=== PATIENT | female | born 1930 | race Caucasian/White ===

== ENCOUNTER → 2020-11-30 | Outpatient (CLI) | payer MEDICARE, BC ==
[~2020-11-30] MED LIST: AMLO5TAB4 PO; APIX2.5T PO; CHOL10003 PO; LISI-167 PO; ROPI0.254 PO; [UNRECOGNIZED DRUG - OTHER]; [UNRECOGNIZED DRUG - OTHER] PO; calcium PO
[2020-11-30 12:21] LABS: BASOPHILS % (AUTO) 0 % (0-1); EOSINOPHILS % (AUTO) 1 % (1-7); LYMPHOCYTES % (AUTO) 23 % (22-44); MEAN CORPUSCULAR HEMOGLOBIN 31.7 pg (27.0-34.8); MEAN CORPUSCULAR HGB CONC 33.5 g/dL (32.4-35.8); MEAN PLATELET VOLUME 10.1 fL (7.4-10.4); MONOCYTES % (AUTO) 14 % (2-9); NEUTROPHILS % (AUTO) 62 % (42-75); PLATELET COUNT 193 x10^3/uL (130-400); RED BLOOD COUNT 4.49 x10^6/uL (3.82-5.3); RED CELL DISTRIBUTION WIDTH 13.5 % (9.6-15.2)
[2020-11-30 12:30] LABS: ALANINE AMINOTRANSFERASE 21 U/L (12-78); ALBUMIN 3.7 g/dL (3.4-5.0); ANION GAP 7 mmol/L (5-15); CALCIUM 9.7 mg/dL (8.5-10.1); CHLORIDE 109 mmol/L (98-107); CREATININE 1.51 mg/dL (0.55-1.02)
[2020-11-30 12:32] LABS: ALKALINE PHOSPHATASE 66 U/L (45-117); BILIRUBIN,TOTAL 0.3 mg/dL (0.2-1.0); TOTAL PROTEIN 7.1 g/dL (6.4-8.2)
== END | disposition home or self-care (01) ==
LOC: STAR 10:04
PROVIDERS: ATTEND Orthopaedic Surgery
DX: Z01.810 Encounter for preprocedural cardiovascular examination (principal); Z01.818 Encounter for other preprocedural examination; M17.12 Unilateral primary osteoarthritis, left knee; M25.562 Pain in left knee; I49.3 Ventricular premature depolarization; I51.7 Cardiomegaly; Z20.822 Contact with and (suspected) exposure to COVID-19
CPT/HCPCS: 36415; 80053; 85025; 87081; 93005; U0003; U0005

== ENCOUNTER 2020-12-06 05:39 | Inpatient (IN) | payer MEDICARE, BC ==
[~2020-12-06] VITALS: Ht 165.1 cm; Wt 59.0 kg
[2020-12-06 06:05] VITALS: BP 161/69
[2020-12-06] MEDS ORDERED: CHLORHEXIDINE 15 ML UDC ONE (06:10)
[2020-12-06] MEDS ORDERED: KETOROLAC 30 MG/1 ML ONE (06:21)
[2020-12-06] MEDS ORDERED: TRANEXAMIC ACID 100 MG/ML, 10ML ONE (06:21)
[2020-12-06] MEDS ORDERED: SODIUM CHLORIDE 0.9% 50 ML ONE (06:21)
[2020-12-06] MEDS ORDERED: VANCOMYCIN 1,000 MG ONE (06:21)
[2020-12-06] MEDS ORDERED: ROPIvacaine/PF 0.2%, 20 ML ONE (06:21)
[2020-12-06] MEDS ORDERED: EPINEPHRINE 1 MG/ML, 1ML ONE (06:21)
[2020-12-06] MEDS ORDERED: LACTATED RINGERS 1,000 ML IV SCH (06:30)
[2020-12-06] MEDS ORDERED: CHLORHEXIDINE 15 ML UDC PO ONE (06:30)
[2020-12-06] MEDS ORDERED: CEFAZOLIN 1,000 MG ONE (06:49)
[2020-12-06] MEDS ORDERED: ROCURONIUM 10 MG/ML,10ML ONE (06:49)
[2020-12-06] MEDS ORDERED: ONDANSETRON 2MG/ML, 2ML ONE (06:49)
[2020-12-06] MEDS ORDERED: SUCCINYLCHOLINE 20 MG/ML, 10ML ONE (06:49)
[2020-12-06] MEDS ORDERED: FENTANYL PF 250 MCG/5ML ONE ×2 (07:23)
[2020-12-06] MEDS ORDERED: FENTANYL PF 100 MCG/2ML ONE (08:20)
[2020-12-06] MEDS: FENTANYL PF 100 MCG/2ML IV PRN ×2 (08:23→08:42)
[2020-12-06] MEDS ORDERED: EPHEDRINE 50 MG/ML, 1ML IVPush PRN (08:30)
[2020-12-06] MEDS ORDERED: LABETALOL 5MG/ML, 20ML IV PRN (08:30)
[2020-12-06] MEDS ORDERED: OXYcodone 5 MG/5 ML ORAL.SOL UDC PO PRN (08:30)
[2020-12-06] MEDS ORDERED: HALOPERIDOL 5 MG/ML IV PRN (08:30)
[2020-12-06] MEDS ORDERED: MORPHINE SULFATE 4 MG/ML, 1ML IVPush PRN (08:30)
[2020-12-06] MEDS ORDERED: HYDROmorphone 1 MG/ML, 1ML INJ IVPush PRN (08:30)
[2020-12-06] MEDS ORDERED: PROMETHAZINE 25 MG/ML, 1ML IVPush PRN (08:30)
[2020-12-06] MEDS ORDERED: KETOROLAC 30 MG/1 ML IV SCH (08:30)
[2020-12-06] MEDS ORDERED: HYDROcodone/APAP 5/325 TABLET PO PRN (08:30)
[2020-12-06] MEDS ORDERED: ACETAMINOPHEN 325 MG TABLET PO PRN (08:30)
[2020-12-06] MEDS ORDERED: PROMETHAZINE 25 MG/ML, 1ML IM PRN (08:30)
[2020-12-06] MEDS ORDERED: PROMETHAZINE 12.5 MG SUPP PR PRN (08:30)
[2020-12-06] MEDS ORDERED: METHOCARBAMOL 1,000 MG in DEXTROSE 5% 100 ML IV PRN (08:30)
[2020-12-06] MEDS ORDERED: DIAZEPAM 5 MG TABLET PO PRN (08:30)
[2020-12-06] MEDS ORDERED: hydrALAzine 20 MG/ML, 1ML IV PRN (08:30)
[2020-12-06] MEDS ORDERED: ONDANSETRON 2MG/ML, 2ML IV PRN (08:30)
[2020-12-06] MEDS ORDERED: DIPHENHYDRAMINE 50 MG/ML, 1ML IVPush PRN (08:30)
[2020-12-06] MEDS ORDERED: TRANEXAMIC ACID 1,000 MG in SODIUM CHLORIDE 0.9% 100 ML IVPB ONE (08:30)
[2020-12-06] MEDS ORDERED: ONDANSETRON 4 MG TABLET PO PRN (08:30)
[2020-12-06] MEDS ORDERED: LORazepam 2 MG/ML, 1ML IVPush PRN (08:30)
[2020-12-06] MEDS ORDERED: OXYcodone 5 MG/5 ML ORAL.SOL UDC ONE (08:44)
[2020-12-06] MEDS ORDERED: ACETAMINOPHEN 650 MG/20.3 ML UDC ONE (08:44)
[2020-12-06] MEDS: OXYcodone 5 MG/5 ML ORAL.SOL UDC PO PRN ×2 (08:47→23:14)
[2020-12-06] MEDS: AMLODIPINE 5 MG TABLET PO SCH ×2 (09:00→23:14)
[2020-12-06] MEDS ORDERED: [UNRECOGNIZED DRUG - OTHER] PO SCH (09:00)
[2020-12-06] MEDS: APIXABAN 2.5 MG TABLET PO SCH ×2 (09:00→23:14)
[2020-12-06] MEDS: LISINOPRIL 10 MG TABLET PO SCH ×2 (09:00→23:14)
[2020-12-06] MEDS: DOCUSATE 100 MG CAPSULE PO SCH ×2 (10:00→23:14)
[2020-12-06] MEDS: ROPINIROLE 0.25MG TABLET PO SCH ×2 (10:00→23:15)
[2020-12-06] MEDS ORDERED: HYDROmorphone 1 MG/ML, 1ML INJ ONE ×2 (10:51)
[2020-12-06] MEDS ORDERED: PROPOFOL 50 ML ONE (10:54)
[2020-12-06 14:51] VITALS: BP 105/47
[2020-12-06] MEDS: CEFAZOLIN PMX 1GM/50ML 50 ML IVPB SCH ×2 (15:05→23:13)
[2020-12-06 19:20] VITALS: BP 108/61
[2020-12-07 00:24] VITALS: BP 131/58
[2020-12-07] MEDS ORDERED: [UNRECOGNIZED DRUG - OTHER] MC SCH (00:30)
[2020-12-07 04:41] VITALS: BP 134/63
[2020-12-07] MEDS ORDERED: DEXAMETHASONE 4 MG/ML, 1ML IVPush ONE (06:00)
[2020-12-07 07:26] VITALS: BP 120/52
[2020-12-07] MEDS: APIXABAN 2.5 MG TABLET PO SCH ×2 (08:35→21:42)
[2020-12-07] MEDS: LISINOPRIL 10 MG TABLET PO SCH ×2 (08:35→21:43)
[2020-12-07] MEDS: ROPINIROLE 0.25MG TABLET PO SCH ×2 (08:35→21:43)
[2020-12-07] MEDS: DOCUSATE 100 MG CAPSULE PO SCH ×2 (08:36→21:42)
[2020-12-07] MEDS: AMLODIPINE 5 MG TABLET PO SCH ×2 (08:36→21:42)
[2020-12-07] MEDS: OXYcodone 5 MG/5 ML ORAL.SOL UDC PO PRN ×2 (11:38→22:17)
[2020-12-07 13:57] VITALS: BP 132/66
[2020-12-07 19:11] VITALS: BP 136/59
[2020-12-07] MEDS: [UNRECOGNIZED DRUG - OTHER] MC SCH (20:43)
[2020-12-08 01:00] VITALS: BP 132/73
[2020-12-08] MEDS: [UNRECOGNIZED DRUG - OTHER] MC SCH (04:37)
[2020-12-08] MEDS: OXYcodone 5 MG/5 ML ORAL.SOL UDC PO PRN (04:58)
[2020-12-08 05:43] LABS: BASOPHILS % (AUTO) 0 % (0-1); EOSINOPHILS % (AUTO) 0 % (1-7); LYMPHOCYTES % (AUTO) 14 % (22-44); MEAN CORPUSCULAR HEMOGLOBIN 32.4 pg (27.0-34.8); MEAN CORPUSCULAR HGB CONC 34.1 g/dL (32.4-35.8); MEAN PLATELET VOLUME 9.1 fL (7.4-10.4); MONOCYTES % (AUTO) 14 % (2-9); NEUTROPHILS % (AUTO) 72 % (42-75); PLATELET COUNT 160 x10^3/uL (130-400); RED BLOOD COUNT 3.55 x10^6/uL (3.82-5.3); RED CELL DISTRIBUTION WIDTH 14.1 % (9.6-15.2)
[2020-12-08 07:49] VITALS: BP 153/66
[2020-12-08] MEDS: LISINOPRIL 10 MG TABLET PO SCH ×2 (08:33→21:27)
[2020-12-08] MEDS: ROPINIROLE 0.25MG TABLET PO SCH ×2 (08:33→21:27)
[2020-12-08] MEDS: AMLODIPINE 5 MG TABLET PO SCH ×2 (08:34→21:27)
[2020-12-08] MEDS: APIXABAN 2.5 MG TABLET PO SCH ×2 (08:34→21:27)
[2020-12-08] MEDS: DOCUSATE 100 MG CAPSULE PO SCH ×2 (08:34→21:27)
[2020-12-08 12:57] VITALS: BP 136/58
[2020-12-08 19:42] VITALS: BP 154/74
[2020-12-08 21:25] VITALS: BP 142/71
[2020-12-08] MEDS: TOLTERODINE LA 4MG CAP.ER.24H PO SCH (21:27)
[2020-12-09 01:21] VITALS: BP 168/80
[2020-12-09 07:50] VITALS: BP 178/75
[2020-12-09] MEDS: APIXABAN 2.5 MG TABLET PO SCH ×2 (08:01→20:26)
[2020-12-09] MEDS: ROPINIROLE 0.25MG TABLET PO SCH ×2 (08:01→20:26)
[2020-12-09] MEDS: AMLODIPINE 5 MG TABLET PO SCH ×2 (08:01→20:26)
[2020-12-09] MEDS: DOCUSATE 100 MG CAPSULE PO SCH ×2 (08:02→20:26)
[2020-12-09] MEDS: LISINOPRIL 10 MG TABLET PO SCH ×2 (08:02→20:26)
[2020-12-09 14:10] VITALS: BP 159/74
[2020-12-09] MEDS: POLYETHYLENE GLYCOL 17 GM PACKET PO PRN (17:38)
[2020-12-09 19:59] VITALS: BP 145/76
[2020-12-09 20:22] VITALS: BP 135/66
[2020-12-09] MEDS: TOLTERODINE LA 4MG CAP.ER.24H PO SCH (20:26)
[2020-12-10 02:17] VITALS: BP 128/67
[2020-12-10] MEDS: POLYETHYLENE GLYCOL 17 GM PACKET PO PRN (06:08)
[2020-12-10 08:36] VITALS: BP 134/61
[2020-12-10] MEDS: LISINOPRIL 10 MG TABLET PO SCH (08:36)
[2020-12-10] MEDS: APIXABAN 2.5 MG TABLET PO SCH (08:36)
[2020-12-10] MEDS: AMLODIPINE 5 MG TABLET PO SCH (08:36)
[2020-12-10] MEDS: DOCUSATE 100 MG CAPSULE PO SCH (08:36)
[2020-12-10] MEDS: ROPINIROLE 0.25MG TABLET PO SCH (08:36)
[2020-12-10] MEDS ORDERED: MAGNESIUM CITRATE 300ML ORAL SOL PO PRN (11:30)
[2020-12-10] MEDS ORDERED: BISACODYL 10 MG SUPP PR PRN (11:30)
[2020-12-10] MEDS ORDERED: OXYC5TAB2 PO (14:05)
[2020-12-10] MEDS ORDERED: TRAM50TA2 PO (14:06)
[2020-12-10] MEDS ORDERED: DOCU-131 PO (14:06)
[2020-12-10 14:47] VITALS: BP 119/54
== END 2020-12-10 16:20 | DRG 470 ==
LOC: OUT 05:39 → ORIP 08:09 → OBSVTOIN 08:09 → 4NE 09:33
PROVIDERS: ADMIT Orthopaedic Surgery; ATTEND Orthopaedic Surgery
PROC: 0SRD0J9 Replacement of Left Knee Joint with Synthetic Substitute, Cemented, Open Approach (ICD-10-PCS; principal; 2020-12-06 07:00)
DX: M17.12 Unilateral primary osteoarthritis, left knee (principal); K59.00 Constipation, unspecified; Z96.652 Presence of left artificial knee joint; Z88.5 Allergy status to narcotic agent
CPT/HCPCS: 36415; 85025; C1713; G0378; J0171; J0690; J1100; J1170; J1885; J2405; J2704; J2795; J3010; J3370; C1776; J0330; J7120